=== PATIENT | female | born 1930 | race Caucasian/White ===

== ENCOUNTER 2017-04-28 19:42 | Emergency (ER) | payer MEDICARE, OTHER ==
--- NOTE | ~2017-04-28 | CR72 ---
[facility] A Service of [facility] & [facility] RADIOLOGY TEXT RESULTS PATIENT: RAMO LAY LOCATION: [facility] : [birth year] UNIT #: [id number] AGE: [address]: Roney Naranjo MD SEX: F ORDER DR: [id number] [facility] [address] [place], [place] [address] [id number] E MR#: [id number] Acc #: [id number] NAME: RAMO LAY : 1930 SEX: F STUDY DATE/TIME: 04/28/2017 20:42 UNIT: [facility] ROOM: STUDY DESCRIPTION: CR Chest Single View Portable Attending Physician: Roney Naranjo M.D. Ordering Physician: Roney Naranjo M.D. Primary Care Physician: Dinah Recio M.D. MEDICAL IMAGING REPORT This report is preliminary unless electronic signature is present EXAM Chest x-ray, 04/28/2017 HISTORY 86-year-old female in the ED after choking episode. Became unconscious while choking on food, subsequently revived. She complains of chest pain. TECHNIQUE AP portable upright chest x-ray. FINDINGS The exam shows gaseous distension of a markedly dilated thoracic and lower cervical esophagus. This has been present on previous studies and is best seen on an older chest CT performed on 06/28/2012. Given the patient's history of choking on food bolus today, a distal esophageal stricture or food impaction should be considered. The degree of esophageal dilatation has increased since prior studies. The lungs are clear. No evidence of aspiration pneumonia or pneumothorax. 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 This is also best demonstrated on previous CTA study of 06/28/2012. This is radiographically stable since 11/26/2016. Mild cardiomegaly is stable. Pulmonary vascularity is normal. Chronic elevation of left hemidiaphragm. IMPRESSION 1. Dilated, air distended esophagus. This has a chronic finding, but the degree of dilatation appears increased today. See above. 2. Lungs clear. No evidence of aspiration pneumonitis. 3. Aneurysmal dilatation of the ascending thoracic aorta, radiographically stable since 11/26/2016. Dictated by... [facility] A Service of [facility] RADIOLOGY TEXT RESULTS PATIENT: RAMO LAY LOCATION: [facility] : [birth year] UNIT #: [id number] AGE: [address]: Roney Naranjo MD SEX: F ORDER DR: Esau Velázquez M.D. THIS IS AN ELECTRONICALLY VERIFIED REPORT Esau Velázquez M.D. at 04/30/2017 8:50 AM Carol TD: 04/29/2017 11:59 JOB #: [id number] MEDICAL IMAGING REPORT Page 1 of 1 COPY
[~2017-04-28 19:42] MED LIST: ACETAMINOPHEN PO; ASPIRIN EC81 M1 PO; ASPIRIN81 M2 PO; B COMPLEX-VITA1 EACH PO; B-COMPLEX WITH1 EACH PO; COMBIVENT U/D3 M2 INH; CORDARONE200 M1 PO; COREG3.125 MG PO; FLORASTOR250 M1 PO; HYDROCODON-ACE1 EAC4 PO; IRON325 ( 651 PO; K-DUR10 MEQ PO; LANOXIN125 MCG PO; LASIX20 MG PO; LIPITOR PO; LISINOPRIL10 MG PO; LISINOPRIL5 MG PO; METHADONE HCL10 MG PO; METHADOSE10 MG PO; MULTI VITAMIN1 EACH PO; NORCO 10-325 TA1 TAB PO; NORCO 10/3251 TAB PO; NYSTATIN15 GM OINT TOP; ONE DAILY GUM200 MCG PO; ONE DAILY TABL1 EAC1 PO; PRILOSEC20 M1 PO; REMERON PO; SIMVASTATIN20 MG PO; VITAMIN B-125000 MC1 PO; ZANTAC PO
== END 2017-04-28 22:13 | disposition home or self-care (01) ==
LOC: CED 19:42
DX: R09.89 Other specified symptoms and signs involving the circulatory and respiratory systems (principal); I50.9 Heart failure, unspecified
CPT/HCPCS: 71010; 94640; 99283